=== PATIENT | male | born 1995 | race Hispanic/Latino ===

== ENCOUNTER 2021-05-08 19:34 | Emergency (ER) | payer OTHER ==
[~2021-05-08] VITALS: Ht 170.2 cm; Wt 68.0 kg
[2021-05-08] MEDS ORDERED: MECLIZINE HCL 25 MG TABLET PO ONE (20:00)
[2021-05-08 20:05] LABS: BASOPHILS % (AUTO) 0.9 % (0.0-5.0); HEMATOCRIT 45.5 % (42-54); LYMPHOCYTES % (AUTO) 25.4 % (21.0-51.0); MEAN CORPUSCULAR HEMOGLOBIN 30.2 pg (27.0-33.0); MEAN CORPUSCULAR HGB CONC 33.6 g/dL (32.0-36.0); MEAN CORPUSCULAR VOLUME 89.7 fL (79-99); MONOCYTES % (AUTO) 8.3 % (3.0-13.0); NEUTROPHILS % (AUTO) 60.3 % (40.0-77.0); PLATELET COUNT (AUTO) 198 K/uL (130-400); RED BLOOD CELL COUNT(AUTO) 5.07 MIL/uL (4.50-6.20); RED CELL DISTRIBUTION WIDTH 12.5 % (11.0-15.5)
[2021-05-08 20:21] LABS: CARBON DIOXIDE 28 mmol/L (21-32); CHLORIDE 101 mmol/L (101-111); CREATININE 1.1 mg/dL (0.5-1.5); GLOMERULAR FILTR. RATE CALC 87 mL/min (>60); GLUCOSE,RANDOM 98 mg/dL (70-105); POTASSIUM 3.8 mmol/L (3.5-5.1); SODIUM SERUM 139 mmol/L (136-145); UREA NITROGEN, BLOOD 18 mg/dL (7-18)
[2021-05-08 20:28] LABS: ALANINE AMINOTRANSFERASE 78 U/L (12-78); ALBUMIN 4.5 g/dL (3.5-5.0); ASPARTATE AMINOTRANSFERASE 54 U/L (10-37); BILIRUBIN,TOTAL 0.5 mg/dL (0.2-1.0); TOTAL PROTEIN, SERUM 7.8 g/dL (6.0-8.3)
[2021-05-08 20:32] LABS: CRP QUANTITATIVE < 2.00 mg/L (0.00-9.0)
[2021-05-08 20:46] VITALS: BP 115/67
[2021-05-08] MEDS ORDERED: SCOP1PAT11 TD (20:54)
== END 2021-05-08 20:59 | disposition home or self-care (01) ==
LOC: EDH 19:34
DX: R42 Dizziness and giddiness (principal); R51.9 Headache, unspecified; K21.9 Gastro-esophageal reflux disease without esophagitis
CPT/HCPCS: 36415; 70450; 80053; 84484; 85025; 86140; 93005

== ENCOUNTER 2021-06-28 17:31 | Emergency (ER) | payer OTHER ==
[~2021-06-28] VITALS: Ht 170.2 cm; Wt 67.6 kg
[~2021-06-28 17:31] MED LIST: SCOP1PAT11 TD
[2021-06-28 17:35] VITALS: BP 123/76
[2021-06-28 18:47] LABS: BASOPHILS % (AUTO) 0.7 % (0.0-5.0); EOSINOPHILS % (AUTO) 3.7 % (0.0-8.0); HEMATOCRIT 44.8 % (42-54); LYMPHOCYTES % (AUTO) 29.9 % (21.0-51.0); MEAN CORPUSCULAR HEMOGLOBIN 30.4 pg (27.0-33.0); MEAN CORPUSCULAR VOLUME 86.7 fL (79-99); MONOCYTES % (AUTO) 7.6 % (3.0-13.0); PLATELET COUNT (AUTO) 205 K/uL (130-400); RED BLOOD CELL COUNT(AUTO) 5.17 MIL/uL (4.50-6.20); RED CELL DISTRIBUTION WIDTH 11.9 % (11.0-15.5)
[2021-06-28 19:08] LABS: CREATININE 1.1 mg/dL (0.5-1.5); POTASSIUM 3.9 mmol/L (3.5-5.1)
[2021-06-28 19:15] LABS: ALBUMIN 4.3 g/dL (3.5-5.0); BILIRUBIN,TOTAL 0.2 mg/dL (0.2-1.0); TOTAL PROTEIN, SERUM 7.9 g/dL (6.0-8.3)
[2021-06-28] MEDS ORDERED: MAG/ALUM/SIMETH 30 ML UDCUP PO ONE (20:30)
[2021-06-28] MEDS ORDERED: PANT40TA55 PO (21:37)
== END 2021-06-28 22:07 | disposition home or self-care (01) ==
LOC: EDH 17:31
DX: R10.13 Epigastric pain (principal); R42 Dizziness and giddiness
CPT/HCPCS: 36415; 80053; 83690; 84484; 85025; 93005